=== PATIENT | male | born 1995 | race Caucasian/White ===

== ENCOUNTER 2017-07-12 12:50 | Observation (INO) | payer OTHER ==
[~2017-07-12] VITALS: Ht 177.8 cm; Wt 88.5 kg
[2017-07-12] MEDS ORDERED: LACTATED RINGERS 1,000 ML IV ONE (13:12)
--- NOTE | 2017-07-12 13:40 | Diagnostic Imaging Report ---
PROCEDURE: CT head without contrast. TECHNIQUE: Multiple contiguous axial images were obtained through the brain without the use of intravenous contrast. INDICATION: Passed out while training. FINDINGS: The ventricles and cortical gyral pattern are normal. There is no intracranial hemorrhage or mass effect. There is no extra-axial fluid collection. Basal cisterns are clear. CP angles appear normal. Mastoid air cells and paranasal sinuses are clear where visualized. No calvarial fractures. IMPRESSION: Negative CT head without contrast. Dictated by: Dictated on workstation # [id number]
--- NOTE | 2017-07-12 13:48 | Diagnostic Imaging Report ---
INDICATION: Syncope. FINDINGS: Examination of the chest in the PA and lateral projections fails to reveal evidence of active parenchymal pathology or pleural effusion. The cardiac silhouette is normal. No pneumothorax. No bony abnormalities. IMPRESSION: Negative chest. Dictated by: Dictated on workstation # [id number]
[2017-07-12 14:04] LABS: BASOPHILS % (AUTO) 0 % (0-10); EOSINOPHILS # (AUTO) 0.1 10^3/uL (0.0-0.3); EOSINOPHILS % (AUTO) 1 % (0-10); LYMPHOCYTES # (AUTO) 2.2 X 10^3 (1.0-4.0); LYMPHOCYTES % (AUTO) 28 % (12-44); MEAN CORPUSCULAR HEMOGLOBIN 28 PG (25-34); MEAN CORPUSCULAR HGB CONC 34 G/DL (32-36); MEAN CORPUSCULAR VOLUME 84 FL (80-99); MEAN PLATELET VOLUME 11.6 FL (7.4-10.4); MONOCYTES # (AUTO) 0.7 X 10^3 (0.0-1.0); MONOCYTES % (AUTO) 9 % (0-12); NEUTROPHILS # (AUTO) 4.9 X 10^3 (1.8-7.8); NEUTROPHILS % (AUTO) 62 % (42-75); PLATELET COUNT 192 10^3/uL (130-400); RED BLOOD COUNT 5.11 10^6/uL (4.35-5.85); WHITE BLOOD COUNT 7.9 10^3/uL (4.3-11.0)
[2017-07-12 14:12] LABS: INR 1.1 (0.8-1.4); PROTHROMBIN TIME PATIENT 13.8 SEC (12.2-14.7)
[2017-07-12] MEDS ORDERED: NS 100 ML (IVPB) BAG IV ONE (14:15)
[2017-07-12] MEDS ORDERED: IOHEXOL 350 MG/ML 150 ML (OMNIPAQUE 350) VIAL IV ONE (14:15)
[2017-07-12 14:23] LABS: ALANINE AMINOTRANSFERASE 11 U/L (0-55); ALBUMIN 4.5 GM/DL (3.2-4.5); ANION GAP 12 MMOL/L (5-14); ASPARTATE AMINO TRANSFERASE 16 U/L (5-34); BILIRUBIN,TOTAL 0.4 MG/DL (0.1-1.0); BLOOD UREA NITROGEN 10 MG/DL (7-18); BUN/CREATININE RATIO 9; CARBON DIOXIDE 23 MMOL/L (21-32); CHLORIDE 105 MMOL/L (98-107); CREATINE KINASE 118 U/L (30-200); CREATININE SERUM 1.15 MG/DL (0.60-1.30); GFR ESTIMATED > 60; GLUCOSE 102 MG/DL (70-105); MAGNESIUM 2.3 MG/DL (1.8-2.4); POTASSIUM 3.6 MMOL/L (3.6-5.0); SODIUM 140 MMOL/L (135-145); TOTAL PROTEIN 7.6 GM/DL (6.4-8.2)
--- NOTE | 2017-07-12 14:42 | Diagnostic Imaging Report ---
PROCEDURE: CT angiography of the chest with contrast. TECHNIQUE: Multiple contiguous axial images were obtained through the chest after uneventful bolus administration of intravenous contrast. Reconstructed CTA MIP acquisitions were also performed. INDICATION: Syncope. Dizziness. Headache. COMPARISON: Chest radiograph 07/12/2017. FINDINGS: Vasculature: No pulmonary artery filling defects. No evidence of thoracic aortic aneurysm or dissection. Heart and mediastinum: No mediastinal, hilar or axillary lymphadenopathy. Normal heart size. No pericardial effusion. Pleura: No pleural effusion or pneumothorax. Lungs and airway: No endobronchial lesions. No pulmonary mass, nodule or consolidation. Upper abdomen: The visualized upper abdominal contents, including the adrenal glands, are unremarkable on this angiographic phase exam. Musculoskeletal: No suspicious osseous lesions. IMPRESSION: Negative CTA chest. Dictated by: Dictated on workstation # [id number]
[2017-07-12 14:43] LABS: TROPONIN I < 0.30 NG/ML (<0.30)
[2017-07-12 16:30] VITALS: BP 132/68
--- NOTE | 2017-07-12 17:04 | Consultation-Cardiology ---
HPI-Cardiology Cardiology Consultation Date of Consultation 07/12/17 Date of Admission Time Seen by Provider: 16:59 Indication: syncope HPI 21 years old gentleman with no significant past medical history, had a syncopal episode during heavy exercise about a year and half ago, no further episodes until this morning when he was running for 2 miles at maximum speed then he started feeling lightheaded and dizzy and fell to the floor passed out, does not recall the event but he was told that he was out for about 2 minutes. Denied any palpitation, no chest pain, no significant dyspnea but he did feel more tired with that exercise than usual. Currently he is laying down in bed, no pain no other symptoms. No family history of syncope or sudden Home Medications & Allergies Allergies: Coded Allergies: No Known Drug Allergies (Unverified , 07/12/17) Home Medication List Reviewed: Yes does not take any medication PCT-Rqyrih-Yajdbo Hx Patient Social History Alcohol Use: Denies Use Recreational Drug Use: No Smoking Status: Never a Smoker Recent Foreign Travel: No Recent Infectious Disease Expo: No Past Medical History no significant past medical history Family Medical History Family Medical Hx Grandmother and grandfather had history of heart attack and in their late 70s and early 80s. No family history of sudden cardiac or congenital heart disease Constitutional: no symptoms reported, see HPI EENTM: see HPI, no symptoms reported Respiratory: no symptoms reported, see HPI, No cough, No dyspnea on exertion, No hemoptysis, No orthopnea, No phlegm, No short of breath, No stridor, No wheezing, No other Cardiovascular: see HPI, No chest pain, No edema, No Hx of Intervention, No palpitations, syncope, No vascular heart diseas, No other Gastrointestinal: no symptoms reported, see HPI Genitourinary: no symptoms reported, see HPI Musculoskeletal: no symptoms reported, see HPI Skin: no symptoms reported, see HPI Psychiatric/Neurological: No Symptoms Reported, See HPI Reviewed Test Results Reviewed Test Results Lab Laboratory Tests Test 07/12/17 13:55 Range/Units White Blood Count 7.9 4.3-11.0 10^3/uL Red Blood Count 5.11 4.35-5.85 10^6/uL Hemoglobin 14.4 13.3-17.7 G/DL Hematocrit 43 40-54 % Mean Corpuscular Volume 84 80-99 FL Mean Corpuscular Hemoglobin 28 25-34 PG Mean Corpuscular Hemoglobin Concent 34 32-36 G/DL Red Cell Distribution Width 13.0 10.0-14.5 % Platelet Count 192 130-400 10^3/uL Mean Platelet Volume 11.6 H 7.4-10.4 FL Neutrophils (%) (Auto) 62 42-75 % Lymphocytes (%) (Auto) 28 12-44 % Monocytes (%) (Auto) 9 0-12 % Eosinophils (%) (Auto) 1 0-10 % Basophils (%) (Auto) 0 0-10 % Neutrophils # (Auto) 4.9 1.8-7.8 X 10^3 Lymphocytes # (Auto) 2.2 1.0-4.0 X 10^3 Monocytes # (Auto) 0.7 0.0-1.0 X 10^3 Eosinophils # (Auto) 0.1 0.0-0.3 10^3/uL Basophils # (Auto) 0.0 0.0-0.1 10^3/uL Prothrombin Time 13.8 12.2-14.7 SEC INR Comment 1.1 0.8-1.4 Activated Partial Thromboplast Time 32 24-35 SEC Sodium Level 140 135-145 MMOL/L Potassium Level 3.6 3.6-5.0 MMOL/L Chloride Level 105 98-107 MMOL/L Carbon Dioxide Level 23 21-32 MMOL/L Anion Gap 12 5-14 MMOL/L Blood Urea Nitrogen 10 7-18 MG/DL Creatinine 1.15 0.60-1.30 MG/DL Estimat Glomerular Filtration Rate > 60 BUN/Creatinine Ratio 9 Glucose Level 102 70-105 MG/DL Calcium Level 9.0 8.5-10.1 MG/DL Magnesium Level 2.3 1.8-2.4 MG/DL Total Bilirubin 0.4 0.1-1.0 MG/DL Aspartate Amino Transf (AST/SGOT) 16 5-34 U/L Alanine Aminotransferase (ALT/SGPT) 11 0-55 U/L Alkaline Phosphatase 52 40-136 U/L Total Creatine Kinase 118 30-200 U/L Creatine Kinase MB 1.2 <6.6 NG/ML Troponin I < 0.30 <0.30 NG/ML Total Protein 7.6 6.4-8.2 GM/DL Albumin 4.5 3.2-4.5 GM/DL TSH [place] Testing 1.93 0.35-4.94 UIU/ML Physical Exam Vital Signs Vital Sign - Last 12Hours 07/12/17 13:15 Temp 98.1 Pulse 86 Resp 16 Pulse Ox 99 O2 Delivery Room Air Capillary Refill : Less Than 3 Seconds General Appearance: No Apparent Distress, WD/WN Eyes: Bilateral Eye Normal Inspection, Bilateral Eye PERRL, Bilateral Eye EOMI HEENT: PERRL/EOMI, TMs Normal, Normal ENT Inspection, Pharynx Normal Neck: Full Range of Motion, Normal Inspection, Non Tender, Supple, Carotid Bruit Respiratory: Chest Non Tender, Lungs Clear, Normal Breath Sounds, No Accessory Muscle Use, No Respiratory Distress Cardiovascular: Regular Rate, Rhythm, No Edema, No Gallop, No JVD, No Murmur, Normal Peripheral Pulses Gastrointestinal: Normal Bowel Sounds, No Organomegaly, No Pulsatile Mass, Non Tender, Soft Back: Normal Inspection, No CVA Tenderness, No Vertebral Tenderness Extremity: Normal Capillary Refill, Normal Inspection, Normal Range of Motion, Non Tender, No Calf Tenderness, No Pedal Edema Neurologic/Psychiatric: Alert, Oriented x3, No Motor/Sensory Deficits, Normal Mood/Affect Skin: Normal Color, Warm/Dry Lymphatic: No Adenopathy A/P-Cardiology Admission Diagnosis Syncope Sinus bradycardia Atrial premature contractions Ventricular premature contractions Assessment/Plan Syncope, probably vagal episode during heavy exercise, underlying arrhythmia cannot be ruled out. Patient will be monitored on telemetry, EKG showed sinus rhythm with no acute abnormality. I will evaluate 2-D echocardiogram and planning for exercise EKG stress test in the morning Sinus bradycardia, continue to monitor heart rate, monitor EKG Occasional atrial and ventricular premature contractions noted, planning to evaluate stress test and echo, continue to monitor telemetry. Dr. Kay is covering for me starting tomorrow ROSEANNA GOMES MD Jul 12, 2017 17:04
[2017-07-12 20:00] VITALS: BP 115/72
[2017-07-13] VITALS: BP 110/70
[2017-07-13 04:00] VITALS: BP 106/62
[2017-07-13 04:11] LABS: BASOPHILS % (AUTO) 0 % (0-10); EOSINOPHILS # (AUTO) 0.1 10^3/uL (0.0-0.3); EOSINOPHILS % (AUTO) 2 % (0-10); LYMPHOCYTES # (AUTO) 2.2 X 10^3 (1.0-4.0); LYMPHOCYTES % (AUTO) 43 % (12-44); MEAN CORPUSCULAR HEMOGLOBIN 28 PG (25-34); MEAN CORPUSCULAR HGB CONC 33 G/DL (32-36); MEAN CORPUSCULAR VOLUME 86 FL (80-99); MEAN PLATELET VOLUME 11.1 FL (7.4-10.4); MONOCYTES # (AUTO) 0.5 X 10^3 (0.0-1.0); MONOCYTES % (AUTO) 9 % (0-12); NEUTROPHILS # (AUTO) 2.4 X 10^3 (1.8-7.8); NEUTROPHILS % (AUTO) 47 % (42-75); PLATELET COUNT 156 10^3/uL (130-400); RED BLOOD COUNT 4.63 10^6/uL (4.35-5.85); RED CELL DISTRIBUTION WIDTH 13.1 % (10.0-14.5); WHITE BLOOD COUNT 5.1 10^3/uL (4.3-11.0)
[2017-07-13 04:27] LABS: ALANINE AMINOTRANSFERASE 9 U/L (0-55); ALBUMIN 3.8 GM/DL (3.2-4.5); ANION GAP 8 MMOL/L (5-14); ASPARTATE AMINO TRANSFERASE 11 U/L (5-34); BILIRUBIN,TOTAL 0.6 MG/DL (0.1-1.0); BLOOD UREA NITROGEN 10 MG/DL (7-18); BUN/CREATININE RATIO 11; CALCIUM 8.6 MG/DL (8.5-10.1); CARBON DIOXIDE 26 MMOL/L (21-32); CHLORIDE 108 MMOL/L (98-107); CREATININE SERUM 0.94 MG/DL (0.60-1.30); GFR ESTIMATED > 60; GLUCOSE 90 MG/DL (70-105); POTASSIUM 3.6 MMOL/L (3.6-5.0); SODIUM 142 MMOL/L (135-145); TOTAL PROTEIN 6.4 GM/DL (6.4-8.2)
[2017-07-13 08:00] VITALS: BP 112/64
--- NOTE | 2017-07-13 09:56 | Progress Note-Cardiology ---
Cardiology SOAP Progress Note Subjective: Sitting up in bed. No further c/o syncope or near syncope. Objective: I&O/Vital Signs Vital Sign - Last 12Hours 07/13/17 07/13/17 07/13/17 07/13/17 04:00 07:00 08:00 08:36 Temp 97.6 98.0 Pulse 65 56 65 Resp 20 16 B/P (MAP) 106/62 112/64 Pulse Ox 98 98 98 O2 Delivery Room Air Room Air Room Air Weight (Pounds): 195 Weight (Ounces): 0.0 Weight (Calculated Kilograms): 88.002915 Constitutional: AAO x 3 Respiratory: lungs clear to percussion, lungs clear to auscultation Cardiovascular: regular rate-rhythm, S1 and S2 Gastrointestional: No tender, soft, round Extremities: no lower extremity edema bilateral Neurologic/Psychiatric: grossly intact Skin: No ulcerations Results/Procedures: Labs Laboratory Tests 07/12/17 20:10: Troponin I < 0.30 07/13/17 04:00: White Blood Count 5.1, Red Blood Count 4.63, Hemoglobin 13.1L, Hematocrit 40, Mean Corpuscular Volume 86, Mean Corpuscular Hemoglobin 28, Mean Corpuscular Hemoglobin Concent 33, Red Cell Distribution Width 13.1, Platelet Count 156, Mean Platelet Volume 11.1H, Neutrophils (%) (Auto) 47, Lymphocytes (%) (Auto) 43 , Monocytes (%) (Auto) 9, Eosinophils (%) (Auto) 2, Basophils (%) (Auto) 0, Neutrophils # (Auto) 2.4, Lymphocytes # (Auto) 2.2, Monocytes # (Auto) 0.5, Eosinophils # (Auto) 0.1, Basophils # (Auto) 0.0, Sodium Level 142, Potassium Level 3.6, Chloride Level 108H, Carbon Dioxide Level 26, Anion Gap 8, Blood Urea Nitrogen 10, Creatinine 0.94, Estimat Glomerular Filtration Rate > 60, BUN/ Creatinine Ratio 11, Glucose Level 90, Calcium Level 8.6, Total Bilirubin 0.6, Aspartate Amino Transf (AST/SGOT) 11, Alanine Aminotransferase (ALT/SGPT) 9, Alkaline Phosphatase 39L, Total Protein 6.4, Albumin 3.8 A/P: Assessment: Two episodes of near-syncope/syncope in the recent past, occurring during exercise Echo on 07/13/17 within normal limits Exercise stress echo on 07/13/17 did not show any significant arrhythmia or any evidence of ischemia Sinus bradycardia Occasional atrial and ventricular premature contractions noted Plan: Syncopal episode with exercise of undetermined etiology Continue tele to evaluate for possible arrhythmia Exercise stress echo today Echocardiogram to evaluate structure Consider ambulatory school bus monitor as an out-pt Physician Assessment Physician Assessment Feels well Lungs: clear Cor: reg Ext: no c/c/e A&R * As documented in our note above that I updated (italics) and as noted below * No evidence of any significant card pathology or cardiac arrhythmia, so far * Have advised outpatient f/u with Dr Brady. No exertional activity until outpatient cardiac f/u [facility]IN[facility] POW[facility]LL [facility] Jul 13, 2017 09:56 MYAH GOMEZ MD FACP [facility] Jul 13, 2017 14:13
[2017-07-13 12:00] VITALS: BP 106/64
--- NOTE | 2017-07-13 14:31 | Discharge Inst-Cardiology ---
Discharge Inst-Cardiac Patient Instructions Patient Instructions: F/u with Dr Brady next week No exertional activity until f/u with Dr Brady Activity & Diet Discharge Diet: Regular Diet MYAH GOMEZ MD FAC [facility] Jul 13, 2017 14:31
[2017-07-13 16:00] VITALS: BP 112/67
== END 2017-07-13 14:30 | disposition home or self-care (01) ==
LOC: ER 12:54 → UNDOADMOB 15:10 → ICU 15:10 → UNDODISOB 07-13 18:30
PROVIDERS: ADMIT Internal Medicine Cardiovascular Disease; ATTEND Internal Medicine Cardiovascular Disease
DX: R55 Syncope and collapse (principal); R00.1 Bradycardia, unspecified; I49.1 Atrial premature depolarization; I49.3 Ventricular premature depolarization
CPT/HCPCS: 36415; 70450; 71020; 71275; 80053; 82550; 82553; 83735; 84443; 84484; 85025; 85610; 85730; 93005; 93041; 93306; 93351; 96360; 96361

== ENCOUNTER 2018-12-12 10:49 | Emergency (ER) | payer OTHER ==
[~2018-12-12] VITALS: Ht 180.3 cm; Wt 106.6 kg
--- NOTE | 2018-12-12 11:31 | ED Lower Extremity ---
General Chief Complaint: General Problems/Pain Stated Complaint: POSS PULLED MUSCLE IN GROIN AREA Source: patient Exam Limitations: no limitations History of Present Illness Date Seen by Provider: Dec 12, 2018 Time Seen by Provider: 11:18 Initial Comments This 21-year-old male presents after he pulled a groin muscle in the right leg while he was at [employer] today. He is complaining of pain in the area made worse with movement. The injury occurred while the patient was exercising. He felt a sharp pain in his right groin which was made worse with subsequent movement. He denies feeling a bulge in the area. He denies having similar pain in the past. Allergies and Home Medications Allergies Coded Allergies: No Known Drug Allergies (Unverified , 07/12/17) Home Medications No Active Prescriptions or Reported Meds Patient Home Medication List Home Medication List Reviewed: Yes Review of Systems Constitutional: No chills EENTM: No ear pain Respiratory: No cough Cardiovascular: No chest pain Gastrointestinal: No abdominal pain Genitourinary: no symptoms reported; No dysuria, No frequency Musculoskeletal: see HPI, muscle pain (right groin) Skin: No change in color, No rash Psychiatric/Neurological: No Symptoms Reported Past Cvwkfjl-[id number] Hx Past Med/Social Hx: Reviewed Nursing Past Med/Soc Hx Patient Social History Alcohol Use: Denies Use Recreational Drug Use: No 2nd Hand Smoke Exposure: No Recent Foreign Travel: No Contact w/Someone Who Travel: No Physical Abuse: No Sexual Abuse: No Immunizations Up To Date Date of Pneumonia Vaccine: Aug 03, 2016 Seasonal Allergies Seasonal Allergies: No Past Medical History Surgeries: No Respiratory: No Cardiac: Yes Syncope Neurological: Yes (MIGRANES) Headaches /Migraines Genitourinary: No Gastrointestinal: No Musculoskeletal: No Endocrine: No HEENT: No Cancer: No Psychosocial: Yes (PANIC ATTACKS) Anxiety Integumentary: No Blood Disorders: No Physical Exam Vital Signs Capillary Refill : Height, Weight, BMI Height: 5'10.00" Weight: 195lbs. 0.0oz. [id number]; 28.0 BMI Method:Stated General Appearance: WD/WN, mild distress HEENT: normal ENT inspection Neck: normal inspection Gastrointestinal: other (no right inguinal hernia was appreciated.) Hips: right hip other (there is marked tenderness palpation over the right groin area made worse with movement of the right hip.) Neurologic/Tendon: normal sensation, normal motor functions Neurologic/Psychiatric: no motor/sensory deficits Skin: normal color, warm/dry Progress/Results/Core Measures Progress Progress Note : Time: 11:35 Progress Note I believe the patient has had a right groin strain. I cannot exclude the possibility of a right inguinal hernia. 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 I've completed the paperwork for light duty today. I prescribed Vicodin and Flexeril for pain and spasm respectively. I recommended that the patient follow up closely with [facility] tomorrow. Departure Impression Primary Impression: Strain of muscle of right groin region Disposition: HOME, SELF-CARE Condition: Unchanged Departure-Patient Inst. Decision time for Depature: 11:36 Referrals: [facility]/DHARMESH COKER,LOCAL PHYSICIAN (PCP) Primary Care Physician Patient Instructions: Groin Strain (DC) Add. Discharge Instructions: Follow-up with [facility] tomorrow. Vicodin and Flexeril for pain and spasm respectively. Light duty today. Return if any problems or questions. All discharge instructions reviewed with patient and/or family. Voiced understanding. Scripts No Active Prescriptions or Reported Meds NIGEL LYONS MD Dec 12, 2018 11:31
[2018-12-12 11:39] VITALS: BP 116/73
== END 2018-12-12 11:39 | disposition home or self-care (01) ==
LOC: EDUNIT# 10:49 → ER 10:50
DX: S76.811A Strain of other specified muscles, fascia and tendons at thigh level, right thigh, initial encounter (principal); G43.909 Migraine, unspecified, not intractable, without status migrainosus; F41.0 Panic disorder [episodic paroxysmal anxiety]; X58.XXXA Exposure to other specified factors, initial encounter
CPT/HCPCS: 99281